=== PATIENT | female | born 1995 | race Asian ===

== ENCOUNTER 2022-04-09 10:46 | Outpatient (CLI) | payer OTHER ==
[2022-04-09] MEDS ORDERED: BARIUM SULFATE 135 ML SUSP.RECON (E-Z-HD) PO ONE (11:19)
== END 2022-04-09 20:53 | disposition home or self-care (01) ==
LOC: SRD 10:46
PROVIDERS: ATTEND Otolaryngology
DX: R13.10 Dysphagia, unspecified (principal)
CPT/HCPCS: 74220-TC